=== PATIENT | male | born 1970 | race Caucasian/White ===

== ENCOUNTER 2016-08-16 10:28 | Emergency (ER) | payer OTHER ==
[~2016-08-16] VITALS: Ht 177.8 cm; Wt 95.0 kg
[2016-08-16 10:43] VITALS: Ht 177.8 cm; Wt 95.0 kg
[2016-08-16] MEDS ORDERED: ROSU20TA PO (11:01)
[2016-08-16] MEDS ORDERED: ALT/10 PO (11:01)
[2016-08-16] MEDS ORDERED: INSPMPHMLG (11:01)
[2016-08-16] MEDS ORDERED: ASPCH81X PO (11:01)
[2016-08-16] MEDS ORDERED: ELTROXIN PO (11:01)
[2016-08-16] MEDS ORDERED: MoRPHine SULFATE 4 MG/ML 1 ML CARP\\VIAL ONE (11:16)
[2016-08-16] MEDS ORDERED: ONDANSETRON INJ 2 MG/ML 2 ML VIAL ONE (11:16)
--- NOTE | 2016-08-16 11:53 | DIAGNOSTIC IMAGING REPORT ---
RIGHT ANKLE 3 VIEWS HISTORY: R ankle injury Right COMPARISON: None. FINDINGS: No fracture or dislocation within the distal tibia or distal fibula. Abnormal talonavicular articulation which demonstrates up to 1.2 cm of dorsal displacement as well as lateral displacement of the talus in relation to the navicular bone. This is consistent with a medial subtalar dislocation. No radiopaque foreign bodies. IMPRESSION: Medial subtalar dislocation within the right foot. Electronically signed by: Chester Sims M.D. 08/16/2016 11:52 AM Dictated Date/Time: 08/16/2016 11:46 AM
[2016-08-16] MEDS ORDERED: MoRPHine SULFATE 4 MG/ML 1 ML CARP\\VIAL IV STA (12:30)
--- NOTE | 2016-08-16 12:53 | EMERGENCY ROOM VISIT NOTE ---
ED Visit Note First contact with patient: 10:55 Chief Complaint: Right ankle pain. History of Present Illness: Mr. Arredondo is a 46-year-old white male who is brought into the ED via wheelchair complaining of right lateral ankle pain. Patient reports he is visiting this area from [place]. He has no previous significant ankle injuries or surgeries. Patient reports approximately one hour before he arrived in the emergency department he was walking on concrete when he accidentally stepped over the concrete and rolled his ankle between a concrete and the ground. Since that time he has been having lateral ankle pain and pain over the top of his foot. Currently he describes his pain as a stinging/burning sensation. He rates his discomfort 7/10. The pain is nonradiating. Pain worsens with palpation over the lateral malleolus and the top of the foot. He has not identified any alleviating factors related to the pain. He has not taken any medications for pain prior to arrival at the hospital. He denies any associated symptoms including hip pain, knee pain, lower leg pain, leg weakness/numbness/tingling. Review of Systems: As noted above in history of present illness. Past Medical History: Diabetes, pneumonia, right DVT, hypothyroidism, psoriasis , status post right femoral femoral popliteal bypass. Current Medications: All taste, Crestor, insulin, aspirin. Allergies to Medications: Patient denies. Social History: Patient is currently employed; he lives with his family and feels safe in his home environment; he denies tobacco use; he admits to alcohol use. Physical Examination: Vital Signs: Date Time Temp Pulse Resp B/P (MAP) Pulse Ox O2 Delivery O2 Flow Rate FiO2 08/16/16 10:43 36.8 98 17 140/90 97 Room Air GENERAL: 46-year-old male in mild to moderate distress due to pain, nontoxic- appearing, afebrile and hemodynamically stable. NEUROLOGICAL: Awake, alert and oriented to person, place and time. Answering questions appropriately and following commands. SKIN: Warm, dry and pink. No soft tissue eruptions or trauma noted. RIGHT LOWER EXTREMITY: No tenderness over the hip, knee or lower leg. There is deformity at the level of the ankle with lateral displacement. I do not appreciate any bony deformity or crepitus. There is tenderness over the lateral malleolus and the ligamentous structures anterior and inferior to the malleolus. There is also tenderness over the dorsal aspect of the foot without bony deformity or crepitus. Dorsalis pedis and anterior tibialis pulses are intact. The skin was warm and pink and capillary refill is brisk. He was not able to move his ankle in any direction. He was able to wiggle was toes. He was able to distinguish light sensations through all dermatomes of the foot. ED Course: Patient is assessed as noted above in Patient's medications were reviewed. An IV lock was initiated and patient received 4 mg of morphine IV and 4 mg of Zofran IV. Right Ankle X-Rays: Were reviewed by myself and read by the radiologist showing a medial subtalar dislocation of the right foot which demonstrates up to 1.2 cm of dorsal displacement and lateral displacement of the talus in relationship to the navicular bone. Patient was reassessed multiple times during his stay in emergency department. Patient's case was reviewed with my attending, Dr. Chacon; we agreed on diagnostic approach, treatment, disposition and plan. Patient's case was consulted with Dr. Ovalles, work station support specialist; he suggested transfer to tertiary care [facility] for possible reduction. He did not believe anybody in the local area would be able to perform this procedure that could also include surgery. Patient's case was consulted with Dr. Forrest Mcrae, work station support specialist at [facility]; he recommended private transport to the ED at [facility] for reduction. Patient's case was consulted with Dr. Forrest Doe, emergency medical leader at [facility]; he accepted the patient for transport to the ED at [facility]. Patient was given an additional 4 mg of morphine IV. Patient was placed in a posterior and sugar tong splint of the ankle. Patient and family members were educated about today's findings and instructed on his treatment plan; they verbalizes understanding and agreement with this plan. Clinical Impression: Right subtalar dislocation of the foot. Decision-Making: Initially my differential diagnosis I considered ankle sprain, ankle dislocation, ankle fracture with dislocation and other causes. Disposition: Patient be discharged from the hospital for private vehicle transport to [facility] for definitive care and treatment. Plan: Immediately to the emergency department at [facility] to meet with orthopedics for definitive care and treatment.
[2016-08-16 13:08] VITALS: BP 139/78; PULSE 78; TEMP 36.8; O2SAT 97
--- NOTE | 2016-08-16 15:09 | EMERGENCY ROOM VISIT NOTE ---
ED Visit Note First contact with patient: 10:55 I have personally seen and evaluated the patient with the PA. I agree with the diagnosis and management decisions and have been personally involved in the case. The patient was evaluated and has a closed injury of the right ankle. X- rays were reviewed. The x-ray findings of a subtalar dislocation are consistent with the patient's presentation. Orthopedics was consulted and recommended transfer to a tertiary care facility. After discussion with the family, it was decided the [facility] is the most appropriate location. The patient was accepted by both orthopedics and emergency medicine at [facility]. Transfer via private vehicle was arranged. Please see Jay Rojas PA-C's notes for further details of the history, physical and visit.
== END 2016-08-16 12:57 | disposition short-term general hospital (02) ==
LOC: C.EDB 10:31 → C.EDD 12:57
DX: S93.04XA Dislocation of right ankle joint, initial encounter (principal); X58.XXXA Exposure to other specified factors, initial encounter; E11.9 Type 2 diabetes mellitus without complications; E03.9 Hypothyroidism, unspecified; Z86.718 Personal history of other venous thrombosis and embolism; Z98.890 Other specified postprocedural states; Z79.4 Long term (current) use of insulin; Z79.82 Long term (current) use of aspirin; Z79.899 Other long term (current) drug therapy